=== PATIENT | male | born 1960 | race Caucasian/White ===

== ENCOUNTER 2017-09-20 10:42 | Emergency (ER) | payer BC, SELFPAY | END 2017-09-20 12:04 | disposition home or self-care (01) | PROVIDERS: Emergency Provider Nurse Practitioner Family; Visit Provider Nurse Practitioner Family | DX: J09.X2 Influenza due to identified novel influenza A virus with other respiratory manifestations (principal) | CPT/HCPCS: 87804; 99201 ==

== ENCOUNTER → 2018-07-08 12:14 | Outpatient (CLI) | payer BC, SELFPAY ==
[2018-07-08 12:16] LABS: Adenovirus F 40/41, stool Not Detected (NotDetected); Astrovirus Not Detected (NotDetected); Campylobacter Not Detected (NotDetected); Clostridium Difficile A/B, PCR Not Detected (NotDetected); Cryptosporidium Not Detected (NotDetected); Cyclospora Cayetanesis Not Detected (NotDetected); Entamoeba histolytica Not Detected (NotDetected); Enteroaggregative E coli Not Detected (NotDetected); Enterotoxigenic E coli Not Detected (NotDetected); Giardia lamblia Not Detected (NotDetected); Norovirus Not Detected (NotDetected); Plesimonas Shigalloides, PCR Not Detected (NotDetected); Rotavirus A Not Detected (NotDetected); Salmonella, PCR Not Detected (NotDetected); Sapovirus Not Detected (NotDetected); Shiga-like toxin E coli Not Detected (NotDetected); Shigella Enterovasive E coli Not Detected (NotDetected); Vibrio Cholerae Not Detected (NotDetected); Vibrio, PCR Not Detected (NotDetected); Yersinia Entercolitica, PCR Not Detected (NotDetected)
[2018-07-08 16:10] LABS: Enteropathogenic E coli Detected (NotDetected)
== END ==
PROVIDERS: PCP Nurse Practitioner; Visit Provider Nurse Practitioner
DX: R19.7 Diarrhea, unspecified (principal); Z20.5 Contact with and (suspected) exposure to viral hepatitis
CPT/HCPCS: 87507

== ENCOUNTER → 2018-11-11 07:47 | Outpatient (CLI) | payer BC, SELFPAY ==
--- NOTE | 2018-11-11 07:55 | MR_ITS ---
MR head/brain wo con HISTORY: Severe constant headache ITS.REASON: NEW DAILY PERSISTENT HEADACHE ORDERING PHYSICIAN: Miesha Mosley PATIENT AGE: 58 years Comparison: 727 TECHNIQUE: Standard multiplanar multiecho sequences are performed without contrast. FINDINGS: No midline shift, mass effect, intracranial hemorrhage, or hydrocephalus. No evidence of acute infarction. The cerebellopontine angle, cerebellum, and brainstem are unremarkable. There are scattered periventricular and subcortical small T2 white matter hyperintensities. These may be due to ischemic gliotic foci from small vessel disease or migraine headache. Demyelinating process felt to be less likely but not completely excluded. No corpus callosal or subcortical U fibers involvement. The pituitary, optic chiasm, corpus callosum, and craniocervical junction and upper cervical cord have an unremarkable appearance. Mucosal thickening of the ethmoid sinuses and bilateral maxillary sinuses. Lobular mucosal thickening is present in the left nasopharynx and may be related to polyp involvement of the nasal mucosa on the left. No mastoid effusion. IMPRESSION: 1. No acute intracranial findings. 2. Scattered T2 white matter hyperintensities which may be due to ischemic gliotic change from small vessel disease versus migraine headache. Demyelinating process felt to be less likely but not totally excluded. 3. Paranasal sinus disease with possible polyp of the left nasopharynx
== END ==
PROVIDERS: PCP Nurse Practitioner Family; Visit Provider Nurse Practitioner Family
DX: G44.52 New daily persistent headache (NDPH) (principal)
CPT/HCPCS: 70551

== ENCOUNTER → 2020-06-08 16:16 | Outpatient (CLI) | payer BC, SELFPAY ==
--- NOTE | 2020-06-08 16:23 | XR_ITS ---
PROCEDURE: XR HAND RT MIN 3V CLINICAL INDICATION: R HAND PAIN COMPARISON: No exams were available for comparison FINDINGS: No fracture or dislocation. No lytic or blastic change. There is normal mineralization. The joint spaces are well-preserved. No significant degenerative/arthritic changes. No erosive changes evident. Other findings:There are hyperostotic changes at the carpal metacarpal junction dorsally as seen on the lateral view IMPRESSION: Hyperostosis at the dorsal carpal metacarpal junction otherwise negative Dictated by: Roger Roberts MD 06/08/2020 17:21 Roger Roberts MD in [place] 06/08/2020 17:21
[2020-06-08 17:26] LABS: Uric Acid 10.4 mg/dl (3.5-8.5)
[2020-06-08 17:31] LABS: C-Reactive Protein 0.8 mg/L (0-4)
[2020-06-08 17:56] LABS: Erythrocyte Sedimentation Rate 19 mm/hr (0-20)
[2020-06-10 10:44] LABS: RA Latex Turbid. <10.0 IU/mL (0.0-13.9)
[2020-06-11 15:40] LABS: Antinuclear Antibodies, IFA Negative (.)
== END ==
PROVIDERS: Nurse Practitioner Family; PCP Family Medicine; Visit Provider Family Medicine
DX: M79.641 Pain in right hand (principal)
CPT/HCPCS: 36415; 73130; 84550; 85651; 86038; 86140; 86431

== ENCOUNTER 2020-12-28 19:52 | Emergency (ER) | payer BC, SELFPAY ==
[2020-12-28 20:11] VITALS: RESP 16; TEMP 36.5; O2SAT 96; BMI 28.7
--- NOTE | 2020-12-28 20:18 | XR_ITS ---
PROCEDURE: XR ELBOW RT MIN 3V CLINICAL INDICATION: right elbow bursitis, swelling, pain COMPARISON: No exams were available for comparison FINDINGS: No fracture or dislocation. No lytic or blastic change. There is normal mineralization. There is a prominent spur of the tip of the olecranon at the insertion of the triceps tendon. There is prominent diffuse swelling of the olecranon bursa. No foreign bodies. IMPRESSION: Probable olecranon bursitis Dictated by: Dr. Jon Osorio MD 12/29/2020 08:32 Dr. Jon Osorio MD in [place] 12/29/2020 08:32
--- NOTE | 2020-12-28 20:18 | HMH.EDUTC ---
[facility] [place] Clinical Impression: Olecranon bursitis, right elbow Disposition: Home, Self-Care Condition on Discharge: Good Instructions: DI for Elbow Bursitis Additional Instructions: Rest the extremity, Elevate the extremity as tolerated while you are resting. Take ibuprofen for pain. Take the steroids that we prescribed. Starting them in the morning would be best. Wear the donal wrap or something else that will pad the elbow and protect it. Follow up with Dr. Dickson (orthopedics). I put in a referral but you need to call his office and schedule an appointment. Follow up with your regular doctor. GO TO THE ER FOR ANY WORSENING SYMPTOMS Prescriptions: methylPREDNISolone [Medrol] 4 mg PO DIRECTED 6 Days #21 tab.ds.pk Transmission Status: Received by [id number] Rx Referrals: Blu Roy MD [Primary Care Provider] - Jaimson Dickson MD [Staff Physician] - Time of Disposition: 20:47 Medical Decision Making - Medical Records Medical records reviewed: No: I reviewed the patient's medical records. - Adam Inquiry Pt receiving controlled substance: No Vital Signs: 12/28/20 20:11 12/28/20 20:51 Temperature 97.7 F 98.0 F Temperature Source Oral Oral Pulse Rate 88 Respiratory Rate 16 16 Blood Pressure 141/87 H 02 Sat by Pulse Oximetry 96 Oxygen Delivery Method Room Air Room Air Orders (Tests/Meds): ORDERS Category Date Time Status Elbow XR right minimum 3 views [XR elbow RT min 3V] Exams 12/28/20 20:18 Taken Stat - Radiology Data #1 Image(s): Elbow Image Reviewed: Yes I reviewed the patient's radiology image, Yes I have reviewed radiologist's interpretation Preliminary Findings: No Fracture Seen bone spur noted on x-ray, no fracture [facility] [place] - General Stated complaint: knot on right elbow Time Seen by Provider: 12/28/20 20:18 Mode of Arrival: Ambulatory Source of Information: Patient Limitations: No Limitations Description of Symptoms (Recalled from Triage Doc. by RN): Red swollen area to Right Elbow, denies any pain or discomfort. HEENT Symptoms (Recalled from RN notes): No Resp Symptoms (Recalled from RN notes): No Skin Symptoms (Recalled from RN notes): Yes MS Symptoms (Recalled from RN notes): No Functional Status (Recalled from RN notes): na - History of Present Illness Provider Complaint: He states that since earlier today he has had right elbow pain and swelling. He denies any injury or history of similar episodes. - Related Data Home Medications Medication Instructions Recorded Confirmed Levothyroxine Sodium 25 mcg PO DAILY 08/16/19 08/16/19 [Levothyroxine 25mcg (0.025mg) Tab] Tiotropium Br/Olodaterol HCl 2 puffs INHALATION DAILY 08/16/19 08/16/19 [Stiolto Respimat Inhal [place]] Previous Rx's Medication Instructions Recorded predniSONE [Prednisone 20mg 20 mg PO BID #10 tab 08/17/19 Tab] methylPREDNISolone [Medrol] 4 mg PO DIRECTED 6 Days #21 12/28/20 tab.ds.pk Allergies Allergy/AdvReac Type Severity Reaction Status Date / Time milk Allergy Verified 12/28/20 20:35 - Worker's Comp Is this a Worker's Comp case?: No [facility] History - Hepatitis A Screen Drug use history?: No High risk sexual behaviors?: No History of sexually transmitted infection?: No Currently employed?: No Childcare worker?: No Do you have indoor plumbing?: Yes Do you have electricity?: Yes Attestation statement:: This patient has been screened for Hepatitis A risk factors. I have reviewed the patient's past medical history: Yes Medical History: Denies:: Diabetes Mellitus Type 1, Diabetes Mellitus Type 2 - Social History Smoking Status: Former smoker Tobacco Type: cigarettes Alcohol Intake: never Occupational Status: employed ROS Obtained: Yes All systems reviewed & no additional complaints - Constitutional Constitutional: Denies chills, Denies fever(s) - Musculoskeletal Musculoskel
[2020-12-28 20:51] VITALS: BP 141/87; PULSE 88; RESP 16; TEMP 36.7; O2SAT 98
== END 2020-12-28 20:53 | disposition home or self-care (01) ==
PROVIDERS: Emergency Provider Nurse Practitioner Family; PCP Family Medicine
DX: M70.21 Olecranon bursitis, right elbow (principal); Z87.891 Personal history of nicotine dependence
CPT/HCPCS: 73080; 99202; G0463

== ENCOUNTER → 2021-05-20 12:45 | Outpatient (CLI) | payer BC, SELFPAY ==
[2021-05-20 13:55] VITALS: PULSE 75; PULSE 78
--- NOTE | 2021-05-20 14:31 | CT_ITS ---
PROCEDURE: CT LUNG SCREENING CLINICAL INDICATION: lung cancer screening COMPARISON: No exams were available for comparison TECHNIQUE: The exam was performed on a GE Light Speed [address] scanner using 2.90 mGy CTDI. A low dose helical CT CHEST was performed on a multi-detector scanner. All CT scans at the facility use one or more dose reduction, viz: automated exposure control, ma/kV adjustment per patient size (including targeted exams where dose is matched to indication, i.e. head), or iterative reconstruction technique. The LDCT was performed in a facility that meets the criteria for the screening program. Data regarding this exam was submitted to ACR which is an approved registry. The order for this exam indicates that it came as a result of a lung cancer screening counseling shard decision-making visit that included all the elements required of such a visit including smoking cessation. The radiologist interpreting this exam meets the CMS criteria for the LDCT lung cancer screening program. The exam is reported using the Lung-RADS classification scale and reported to the ACR registry. NOTE: This study was performed for the specific purposes of lung cancer screening and is not an alternative to diagnostic chest CT. RADIATION DOSE: CTDI vol(CT dose Index-volume) = 2.90mG DLP (Dose Length Product) = 107.86 mGcm FINDINGS: COPD changes with centrilobular emphysema. Mild bronchial thickening. Calcified granuloma left posterior costophrenic sulcus. No suspicious pulmonary nodules apparent OTHER FINDINGS: Mild dilatation of the ascending aorta measuring up to 4.2 cm. IMPRESSION: Lung-RADS Category 1 Negative Follow-up: Continue annual screening with LDCT in 12 months There is mild dilatation of the ascending aorta at 4.2 cm. Appropriate clinical and imaging follow-up suggested to confirm stability Dictated by: Roger Roberts MD 05/21/2021 05:25 Roger Roberts MD in [place] 05/21/2021 05:25
== END ==
PROVIDERS: PCP Family Medicine; Visit Provider Internal Medicine Pulmonary Disease
DX: Z87.891 Personal history of nicotine dependence (principal); Z12.2 Encounter for screening for malignant neoplasm of respiratory organs; R06.00 Dyspnea, unspecified
CPT/HCPCS: 71271; 94060; 94618; 94640; 94727; 94729

== ENCOUNTER → 2021-12-06 17:41 | Outpatient (CLI) | payer BC, SELFPAY | PROVIDERS: PCP Family Medicine; Visit Provider Internal Medicine Pulmonary Disease | DX: R06.09 Other forms of dyspnea (principal) | CPT/HCPCS: 94762 ==

== ENCOUNTER → 2021-12-28 08:14 | Outpatient (CLI) | payer BC, SELFPAY | PROVIDERS: Visit Provider Surgery | DX: Z01.812 Encounter for preprocedural laboratory examination (principal); Z11.52 Encounter for screening for COVID-19; Z12.11 Encounter for screening for malignant neoplasm of colon; Z86.010 Personal history of colon polyps | CPT/HCPCS: C9803; U0003; U0005 ==

== ENCOUNTER 2021-12-31 11:30 | Day surgery (SDC) | payer BC, SELFPAY ==
[2021-12-27 11:54] VITALS: BMI 28.7
[2021-12-31 11:41] VITALS: BP 159/100; PULSE 71; RESP 16; TEMP 36.5; O2SAT 96
--- NOTE | 2021-12-31 12:01 | HMH.ANESCL ---
[facility] Anesthesia Checklist - Patient Identification Patient Identification: Arm Band - Structural Data Admitted From: Home Planned Operative Procedure/s: colonoscopy Consent for Planned Operative Procedure(s) Verified: Yes Verified Documents: Surgical Consent, History and Physical - NPO Status Verified Time NPO: 00:00 - Additional verifications Anesthesia Reactions: No - Airway Assessment C-Spine Mobility Assessed: Yes (mp2) TMJ Mobility Assessed: Yes Dentition: Good Dentition - Neurological Assessment Level of Consciousness: Awake, Alert - Anesthesia Plan Anesthesia Risk discussed: Yes Anesthesia Plan: Verified ASA Class: II Anesthesia Type: MAC [facility] History I have reviewed the patient's past medical history: Yes Medical History: Reports:: Chronic Obstructive Pulmonary Disease (COPD), Gastroesophageal Reflux Disease(GERD) Denies:: Cancer, Diabetes Mellitus Type 1, Diabetes Mellitus Type 2, Internal Pacemaker, MRSA, Seizures *Have you ever received a pneumonia vaccine?: No *Have you received a flu vaccine this season?: No Other Medical History: Reports: Hypothyroidism Anesthesia experience/problems:: nac Other Surgeries: Yes: Sinus Surgery, Other. No: Pacemaker - *Social History Last grade of school completed: Advanced degree Smoking Status: Former smoker Tobacco Type: cigarettes Alcohol Intake: never Substance Use Type: denies use *Occupational Status:: employed Housing: house Household Members: spouse *Travel in the last 8 weeks: None Family Hx:: Cancer, Diabetes, Heart Attack
[2021-12-31 12:57] VITALS: O2SAT 96
--- NOTE | 2021-12-31 13:31 | HMH.SCOPE ---
- Procedure: Date: 12/31/21 Patient Date of :: 1960 Procedure Performed:: Colonoscopy with polypectomy by means other than snare Indications:: History of colon polyps Performing Provider:: Fredis Jacinto MD Referring Provider:: . Sedation:: Monitored anesthesia care Procedure:: After informed consent was obtained the patient was taken to the endoscopy suite. Sedation ensued after the patient was transferred to the left lateral decubitus position. Pulse, blood pressure, and oxygen saturation were monitored throughout the procedure. Digital rectal exam revealed no significant abnormality. The colonoscope was placed in position. The entire colon was evaluated. The colonoscope was carefully removed and the patient was transferred to recovery in stable condition. Please see findings and specimens below for detail. Findings:: Bowel preparation relatively fair Significant lack of relaxation and severe spasticity of the sigmoid colon Polyps (see specimens) Specimens:: Polyp at 55 cm (cold biopsy forceps) Polyp at 40 cm (cold biopsy forceps) Recommendations:: Timing of repeat colonoscopy is pending pathology but likely be between 2-3 years secondary to history of polyps, lack of relaxation, and severe sigmoid spasticity. Consider barium enema for improved evaluation of the sigmoid colon. If barium enema reveals no abnormality timing of repeat colonoscopy can be extended to 3-5 years. Complications:: No immediate Estimated blood obtained (mL): 1
[2021-12-31 13:35] VITALS: BP 98/61; PULSE 78; RESP 14; TEMP 36.1; O2SAT 91
[2021-12-31 13:45] VITALS: BP 98/63; PULSE 62; RESP 14; TEMP 36.1; O2SAT 94
[2021-12-31 13:55] VITALS: BP 173/71; PULSE 64; RESP 16; TEMP 36.1; O2SAT 94
[2021-12-31 14:10] VITALS: BP 127/86; PULSE 61; RESP 18; TEMP 36.1; O2SAT 94
== END 2021-12-31 14:10 | disposition home or self-care (01) ==
LOC: OUTP 11:31
PROVIDERS: PCP Family Medicine; Visit Provider Surgery
PROC: 0DJD8ZZ Inspection of Lower Intestinal Tract, Via Natural or Artificial Opening Endoscopic (ICD-10-PCS; CPT 45380; principal; 2021-12-31 12:30)
DX: Z12.11 Encounter for screening for malignant neoplasm of colon (principal); K58.9 Irritable bowel syndrome, unspecified; K63.5 Polyp of colon; Z86.010 Personal history of colon polyps; E07.9 Disorder of thyroid, unspecified; K21.9 Gastro-esophageal reflux disease without esophagitis; J44.9 Chronic obstructive pulmonary disease, unspecified; E78.5 Hyperlipidemia, unspecified; I10 Essential (primary) hypertension; Z79.899 Other long term (current) drug therapy
CPT/HCPCS: 45380

== ENCOUNTER → 2022-06-03 15:05 | Outpatient (CLI) | payer BC, SELFPAY ==
--- NOTE | 2022-06-03 15:05 | CT_ITS ---
FINAL REPORT CLINICAL HISTORY: lung cancer screening, former smoker.. quit 6 years ago. smoked 2 ppd x 45 years. copd no family hx COMPARISON: May 20, 2021 FINDINGS: Low-Dose Chest CT Axial images were obtained from the lung apex to the mid abdomen by computed tomography. Low-dose protocol was utilized. CTDI vol (mGy): 2.90 DLP (mGy-cm): 104.46 There is no axillary adenopathy. There is no hilar or mediastinal adenopathy. The heart is proper size. There is ectasias ascending aorta measuring 3.9 cm, stable. There is no pericardial or pleural effusion. Limited images of the upper abdomen are unremarkable. Lung window images demonstrate moderate changes of emphysema and mild pulmonary scarring. There is a calcified granuloma in the left lung base. No new mass or nodule is identified. IMPRESSION: Ectasias of the ascending aorta 3.9 cm, stable. No new mass or nodule identified. Lung RADS category 1. Recommend 12 month follow-up low-dose chest CT. Reviewed, Interpreted and Dictated by Chris Rivero III, MD Transcribed by Cely Dietz Authenticated and [facility]
== END ==
PROVIDERS: PCP Family Medicine; Visit Provider Internal Medicine Pulmonary Disease
DX: Z87.891 Personal history of nicotine dependence (principal); Z12.2 Encounter for screening for malignant neoplasm of respiratory organs
CPT/HCPCS: 71271

== ENCOUNTER → 2022-12-17 16:22 | Outpatient (CLI) | payer BC, SELFPAY ==
--- NOTE | 2022-12-17 16:28 | XR_ITS ---
PROCEDURE INFORMATION: Exam: XR Right Foot Exam date and time: 12/17/2022 4:33 PM Age: 62 years old Clinical indication: Pain; Swelling, leg or foot; Right; Prior surgery; Additional info: Pain no accident TECHNIQUE: Imaging protocol: Radiologic exam of the right foot. Views: 3 or more views. COMPARISON: No relevant prior studies available. FINDINGS: Tubes, catheters and devices: Dorsal fixation plates and screws have no evidence of loosening. Bones/joints: First MTP joint arthrodesis is well healed. No fractures, dislocations, or focal bone lesions. Plantar and Achilles heel spurs are present. Soft tissues: Normal. IMPRESSION: 1. Right 1st MTP joint arthrodesis and hardware is well healed. 2. No other acute findings in the right foot. 3. Plantar and Achilles heel spurs affect the right calcaneus.
== END ==
PROVIDERS: PCP Family Medicine; Visit Provider Nurse Practitioner Family
DX: M79.671 Pain in right foot (principal)
CPT/HCPCS: 73630

== ENCOUNTER 2023-11-27 15:53 | Emergency (ER) | payer BC, SELFPAY ==
[2023-11-27 15:54] VITALS: BP 154/91; PULSE 74; RESP 15; TEMP 36.6; O2SAT 96; BMI 28.7
--- NOTE | 2023-11-27 15:55 | ECG_ITS ---
APPROVED REPORT Exam: Resting ECG HR:76 bpm ECG Measurements Heart Rate 76 AXES [place] 145 P 57 QRSd 85 QRS 5 QT 352 T 39 QTc 382 Conclusion SINUS RHYTHM OCCASIONAL ECTOPIC PREMATURE COMPLEXES Electronically signed by : TIFFANIE LECHUGA, 11/27/2023 21:04:28
--- NOTE | 2023-11-27 15:59 | XR_ITS ---
FINAL REPORT CLINICAL HISTORY: cp, palpitations COMPARISON: 08/16/2019 FINDINGS: A portable view of the chest was obtained. Cardiac and mediastinal silhouettes are within normal limits. The lungs are clear. There is no pleural effusion or pneumothorax. IMPRESSION: No acute process on this portable exam. Reviewed, Interpreted and Dictated by Paz Strong MD Transcribed by Chastity Fair Authenticated and [facility]
[2023-11-27 16:00] VITALS: BP 128/79; PULSE 78; RESP 16; O2SAT 96
[2023-11-27 16:07] LABS: Basophils % 0.2 % (0.1-2.0); Eosinophils # 0.1 K/mm3 (0.0-0.4); Eosinophils % 0.8 % (0.1-12.0); Hematocrit 41.3 % (42.0-52.0); Lymphocytes # 1.9 K/mm3 (0.7-4.5); Lymphocytes % 12.7 % (10-50); Mean Corpuscular HGB Conc 31.4 g/dL (31.8-35.4); Mean Corpuscular Hemoglobin 25.1 pg (27.0-31.2); Mean Corpuscular Volume 79.8 fl (80-94); Mean Platelet Volume 8.3 fl (7.4-10.4); Monocytes # 1.1 K/mm3 (0.1-1.0); Monocytes % 7.1 % (1.7-9.3); Neutrophils % 79.2 % (37.0-80.0); Platelet Count 464 K/mm3 (142-424); Red Blood Count 5.17 M/mm3 (4.60-6.20); Red Cell Distribution Width 18.1 % (11.5-17.5); White Blood Count 15.2 K/mm3 (4.8-10.8)
[2023-11-27 16:08] VITALS: PULSE 79
--- NOTE | 2023-11-27 16:10 | PC.NURSE ---
Dr Law at bs
--- NOTE | 2023-11-27 16:10 | PC.NURSE ---
DR LECHUGA AT BEDSIDE
[2023-11-27] MEDS: ASPIRIN 81MG CHEWABLE TABLET 324 MG PO (16:16)
[2023-11-27 16:18] LABS: MANUAL DIFFERENTIAL MANUAL DIFFERENTIAL (MANUAL DIFF)
[2023-11-27 16:20] LABS: Alanine Aminotransferase 30 U/L (12-78); Albumin Level 4.2 g/dl (3.5-5.0); Albumin/Globulin Ratio 1.4 (1.1-1.8); Alkaline Phosphatase 85 U/L (38-126); Anion Gap 14.7 mEq/L (5-15); Aspartate Amino Transferase 26 U/L (17-59); Bilirubin,Total 0.3 mg/dl (0.2-1.3); Blood Urea Nitrogen 21 mg/dl (9-20); Calcium 8.6 mg/dl (8.4-10.2); Carbon Dioxide 23 mmol/L (22.0-30.0); Chloride 102 mmol/L (98-107); Creatinine Clearance Estimated 81 mL/min (50-200); Estimated Glomerular Filt Rate 61 ml/min (>60); GFR (African American) 74 ML/MIN (>60); Glucose 104 mg/dl (74-100); Lipase 106 U/L (23-300); Potassium 4.7 mmoL/L (3.5-5.1); Sodium 135 mmol/L (136-145); Total Protein,Serum 7.2 g/dl (6.3-8.2)
[2023-11-27 16:30] VITALS: BP 115/72; PULSE 78; RESP 16; O2SAT 95
[2023-11-27 16:37] LABS: T4 (Thyroxine) 8.9 ug/dl (5.53-11.0)
--- NOTE | 2023-11-27 16:37 | ED_ITS ---
Discharge Plan Disposition Patient Disposition: Home, Self-Care Chief Complaint: Chest Pain Prescriptions Prescriptions: No Action cyanocobalamin (vitamin B-12) [Vitamin B-12] 500 mcg tablet 500 mcg PO DAILY diphenhydramine HCl [Allergy (diphenhydramine)] 25 mg capsule 25 mg PO HS ferrous sulfate [FeroSul] 325 mg (65 mg iron) tablet 325 mg PO DAILY meloxicam 15 mg tablet 15 mg PO DAILY albuterol sulfate 90 mcg/actuation HFA aerosol inhaler 1 inh INHALATION Q6H PRN (Reason: shortness of breath or wheezing) 90 Days Qty: 8.5 3RF esomeprazole magnesium 20 mg capsule,delayed release(DR/EC) 20 mg PO DAILY Qty: 60 2RF Stiolto Respimat 2.5-2.5 mcg/actuation mist 2 inh .ROUTE .COMPLEX 90 Days Qty: 4 0RF Rx Instructions: 2 inhalations; levothyroxine 25 MCG tablet 25 mcg PO DAILY tiotropium-olodaterol 4 GM mist 2 puff INHALATION DAILY Referrals Follow up/Referrals: Monster Jain MD [Primary Care Provider] - See instructions Activity Restrictions/Add. Instructions Additional Instructions/Restrictions: Call your family doctor to establish care for this visit to the emergency department and schedule follow-up within 48 hours to ensure improvement. If you have any worsening of your condition or any other concerning signs or symptoms, return to the emergency department or your primary care doctor for further evaluation. Talk to your family doctor about scheduling follow-up with cardiology for further evaluation. Clinical Impressions Clinical Impression: Heart palpitations, Symptomatic PVCs Discharge ED Provider: Jayden Law [facility] General Chief Complaint: Chest Pain Stated Complaint: chest pain Time Seen by Provider: 11/27/23 15:54 Mode of Arrival: Ambulatory Source of Information: Patient Limitations: No Limitations Description of Symptoms (Recalled from ER Triage Doc. by RN): pt presents to ED with c/o chest pain. pt reports pain began on thursday and has been intermittent. pain radiates into throat. History of Present Illness HPI narrative: 63-year-old male history of COPD not currently smoking presenting with PVCs. Patient states that he started having fluttering in his chest 3 days prior to this visit. Went to his family doctor, they noticed early beats, and then told him to come to the emergency department for further evaluation. Patient denies chest pain, shortness of breath, PND, orthopnea, lower extremity swelling, diaphoresis, recent illness, cough, or any other concerns. Related Data Home Medications Medication Instructions Recorded Confirmed levothyroxine 25 mcg tablet 25 mcg PO DAILY thyroid 08/16/19 12/31/21 cyanocobalamin (vitamin B-12) 500 500 mcg PO DAILY Supplement 05/01/21 12/31/21 mcg tablet (Vitamin B-12) diphenhydramine HCl 25 mg capsule 25 mg PO HS allergies 05/01/21 12/31/21 (Allergy (diphenhydramine)) ferrous sulfate 325 mg (65 mg 325 mg PO DAILY iron 05/01/21 12/31/21 iron) tablet (FeroSul) meloxicam 15 mg tablet 15 mg PO DAILY Pain 05/01/21 12/31/21 tiotropium 2.5 mcg-olodaterol 2.5 2 puff inhalation DAILY Asthma 12/27/21 12/31/21 mcg/actuation mist for inhalation Previous Rx's Medication Instructions Recorded albuterol sulfate 90 mcg/actuation 1 inh inhalation Q6H PRN shortness 05/01/21 aerosol inhaler of breath or wheezing 90 days #8.5 grams esomeprazole magnesium 20 mg 20 mg PO DAILY #60 caps 08/11/22 capsule,delayed release tiotropium 2.5 mcg-olodaterol 2.5 2 inh .Route .COMPLEX 90 days #4 10/09/23 mcg/actuation mist for inhalation grams (Stiolto Respimat) Allergies Allergy/AdvReac Type Severity Reaction Status Date / Time milk Allergy Verified 12/04/21 15:40 [facility] Disclaimer: The information contained in this section may have been updated after the nicolle ent was seen, as this information can be updated by other users. Social History Smoking Status: Former smoker tobacco type: cigarettes alcohol intake: never substance use type: denies use current occupational status: employed Travel in the last 8 weeks: None household members: spouse housing: house current occupation: [employer] current occupational exposures/hazards: No caffeine: Yes ROS Obtained: Yes All systems reviewed & no additional complaints except as documented Physical Exam General General appearance: alert Neck Neck exam: Present trachea midline Chest Chest inspection: Present normal inspection and symmetric chest wall rise Respiratory Respiratory exam: Present normal lung sounds bilaterally; Absent respiratory distress, wheezes, stridor, accessory muscle use or prolonged expiratory phase Cardiovascular Cardiovascular exam: Present regular rate, normal rhythm and other (Intermittent PVCs, also seen on monitor) Extremities Exam Extremities exam: Absent edema Neurological Exam Neurological exam: Present alert, oriented X3 and CN II-XII intact Skin Skin exam: Present warm and dry; Absent cyanosis, diaphoresis or pallor HEART Score HEART Score HEART Score assessment performed?: Yes History (anamnesis): Slightly suspicious ECG: Normal Age: 45-65 years Risk factors: 1-2 risk factors Troponin: </= normal limit HEART Score: 2 Critical Care Critical Care Time Critical Care Time: No Medical Decision Making Medical Records Medical records reviewed: Yes I reviewed the patient's medical records. Adam Inquiry Pt receiving controlled substance: No Adam was queried for this patient: No Vital Signs Vital Signs: 11/27/23 15:54 11/27/23 16:08 11/27/23 16:00 Temperature 97.9 F Temperature Source Oral Pulse Rate 79 78 Pulse Rate [Left Radial] 74 Respiratory Rate 15 16 Blood Pressure 128/79 Blood Pressure [Right Arm] 154/91 H Blood Pressure Mean [Right Arm] 112 02 Sat by Pulse Oximetry 96 96 Oxygen Delivery Method Room Air Room Air 11/27/23 16:30 Temperature Temperature Source Pulse Rate 78 Pulse Rate [Left Radial] Respiratory Rate 16 Blood Pressure 115/72 Blood Pressure [Right Arm] Blood Pressure Mean [Right Arm] 02 Sat by Pulse Oximetry 95 Oxygen Delivery Method Room Air Lab Data Labs: Lab Results 11/27/23 15:59: WBC 15.2 H, RBC 5.17, Hgb 13.0 L, Hct 41.3 L, MCV 79.8 L, MCH 25.1 L, MCHC 31.4 L, RDW 18.1 H, Plt Count 464 H, MPV 8.3, Neut % (Auto) 79.2, Lymph % (Auto) 12.7, Castro % (Auto) 7.1, Eos % (Auto) 0.8, Baso % (Auto) 0.2, Neut # (Auto) 12.0 H, Lymph # (Auto) 1.9, Castro # (Auto) 1.1 H, Eos # (Auto) 0.1, Baso # (Auto) 0.0, Total Counted 100, Neutrophils % (Manual) 76, Lymphocytes % (Manual) 16, Monocytes % (Manual) 8, Platelet Estimate Slight increase, Hypochromasia 1+, Anisocytosis 1+, Microcytosis 1+, Sodium 135 L, Potassium 4.7, Chloride 102, Carbon Dioxide 23, Anion Gap 14.7, BUN 21 H, Creatinine 1.20, Estimated Creat Clear 81, Estimated GFR 61, Est GFR ( Amer) 74, Glucose 104 H, Calcium 8.6, Magnesium 2.0, Total Bilirubin 0.3, AST 26, ALT 30, Alkaline Phosphatase 85, Troponin I < 0.01, NT-Pro-B Natriuret Pep 171 H, Total Protein 7.2, Albumin 4.2, Globulin 3.0, Albumin/Globulin Ratio 1.4, Lipase 106, TSH 0.07 L, Thyroxine (T4) 8.9 11/27/23 15:59 11/27/23 15:59 Response Orders (Tests/Meds): ED MEDICATIONS Discontinued Medications Generic Name Dose Route Start Last Admin Trade Name Freq PRN Reason Stop Dose Admin Aspirin 324 mg 11/27/23 15:59 11/27/23 16:16 Aspirin 81mg Chewable Tablet PO 11/27/23 16:00 324 mg ONCE ONE Administration ORDERS Category Date Time Status XR chest portable Stat Exams 11/27/23 15:59 Taken Brain Natriuretic Peptide Stat Lab 11/27/23 15:59 Completed Complete Blood Count Auto Diff Stat Lab 11/27/23 15:59 Completed Comprehensive Metabolic Panel Stat Lab 11/27/23 15:59 Completed Lipase Stat Lab 11/27/23 15:59 Completed Magnesium Stat Lab 11/27/23 15:59 Completed T4 (Thyroxine) Stat Lab 11/27/23 15:59 Completed TSH [Thyroid Stimulating Hormone] Stat Lab 11/27/23 15:59 Completed Troponin I Q3H Lab 11/27/23 19:15 Ordered Troponin I Q3H Lab 11/27/23 22:15 Ordered Troponin I Stat Lab 11/27/23 15:59 Completed MDM Narrative Medical Decision Narrative: 63-year-old male history of COPD not currently smoking presenting with PVCs. Patient states that he started having fluttering in his chest 3 days prior to this visit. Went to his family doctor, they noticed early beats, and then told him to come to the emergency department for further evaluation. Patient denies chest pain, shortness of breath, PND, orthopnea, lower extremity swelling, diaphoresis, recent illness, cough, or any other concerns. Patient states that he drinks coffee every morning as well. Other stimulant use. History was obtained via conversation with patient. On arrival, patient hemodynamically stable, alert, oriented x4, appropriate, GCS 15, moving all extremities spontaneously, pupils equal and reactive to light. Full physical exam performed and significant for well-appearing male no acute distress. Lungs are clear to auscultation bilaterally. No focal heart sounds with normal S1 and S2, no murmurs. No lower extremity edema. Differential includes metabolic abnormality, stimulant side effect, medication side effect, structural cardiac disease, ACS, WI, among others. Patient was given 324 mg aspirin for symptomatic management and correction of underlying abnormalities. Workup independently interpreted and significant for nonactionable CBC or chemistry. Mild leukocytosis, but nonspecific and does not correlate with history physical exam. Lipase negative. TSH low at 0.07, T4 normal 8.9. Magnesium normal. BNP mildly elevated at 170, but nonactionable. Troponin negative. Chest x-ray without acute cardiopulmonary airspace disease. See radiology read for full review of final results. Independent interpretation of EKG shows sinus rhythm with occasional PVCs. no ST or T wave changes concerning for acute ischemia. [place] normal, intervals normal. Patient placed on continuous cardiac monitoring and continuous pulse ox with initial blood pressure 128/79, heart rate 75, saturation 98% on room air. Heart score 2. On reevaluation, patient remains at baseline without symptoms. Given patient presentation, workup, history, this most likely represents PVCs, likely secondary to caffeine use. Because patient at baseline without signs or symptoms of clinical decompensation, deemed appropriate for discharge. Results were relayed to patient who voiced understanding and were agreeable to outpatient management and follow up. At the time of discharge the patient was hemodynamically stable, tolerating PO, and mobilizing appropriately.
[2023-11-27 16:41] LABS: Troponin I < 0.01 ng/ml (0.00-0.034)
[2023-11-27 16:50] LABS: Thyroid Stimulating Hormone 0.07 uIU/mL (0.465-4.68)
[2023-11-27 17:04] LABS: NT Pro Brain Natriuretic Pep. 171 pg/mL (0-125)
[2023-11-27 17:12] LABS: Lymphocytes % 16 % (10-50); Monocytes % 8 % (2-9); Neutrophils % 76 % (42-76); Total Cells Counted 100
[2023-11-27 17:13] LABS: Anisocytosis 1+; Hypochromasia 1+; Microcytosis 1+; Platelet Estimate Slight Increase
[2023-11-27 17:37] VITALS: BP 130/50; PULSE 70; RESP 18; TEMP 37.1; O2SAT 100
== END 2023-11-27 17:39 | disposition home or self-care (01) ==
PROVIDERS: Emergency Provider Emergency Medicine; PCP Family Medicine
DX: R07.9 Chest pain, unspecified (principal); R00.2 Palpitations; I49.3 Ventricular premature depolarization; D72.829 Elevated white blood cell count, unspecified; Z87.891 Personal history of nicotine dependence
CPT/HCPCS: 71045; 80053; 83690; 83735; 83880; 84436; 84443; 84484; 85007; 85025; 93005; 99285

== ENCOUNTER 2024-01-12 15:36 | Outpatient (CLI) | payer BC, SELFPAY ==
[2024-01-12 16:36] LABS: Uric Acid 5.9 mg/dl (3.5-8.5)
== END 2024-01-12 23:59 | disposition home or self-care (01) ==
LOC: RT 15:38
PROVIDERS: Nurse Practitioner; PCP Family Medicine; Visit Provider Nurse Practitioner
DX: R07.9 Chest pain, unspecified (principal); R06.09 Other forms of dyspnea; I49.3 Ventricular premature depolarization; R00.2 Palpitations; M10.072 Idiopathic gout, left ankle and foot; M79.672 Pain in left foot
CPT/HCPCS: 36415; 84550; 93270

== ENCOUNTER 2024-01-25 06:08 | Outpatient (CLI) | payer BC, SELFPAY ==
--- NOTE | 2024-01-25 | CA_ITS ---
APPROVED REPORT Exam: Pharmacologic Technologist: Mariluz Pollack, Ht: 5 ft 10 in Wt: 199 lbs BSA: 2.08 m2 HR: 64 bpm BP: 160/79 mmHg Rhythm: NSR Medical History Medications: Levothyroxine,,,,, Allopurinol,,,,, Albuterol,,,,, MeLOXICAM,,,,, Esomeprazole,,,,, StIOLto,,,,, Vitamin B-12,,,,, DiPHENHYDRAMINE hci,,,,, Stress Test Details Test: LEXISCAN Reason for pharmacologic stress test: physical limitation. HR Resting HR: 67 bpm Max Heart Rate (APMHR): 157 bpm Max HR Achieved: 93 bpm Target HR (85% APMHR): 133 bpm % of APMHR: 59 Recovery HR: 73 bpm BP Resting BP: 160/79 mmHg Max BP: 171/84 mmHg Recovery BP: 158.0/87.0 mmHg ECG Resting ECG: Normal sinus rhythm Stress ECG: No siginficant ST changes Arrhythmia: None Clinical Exercise duration: 00:24 min Highest Stage Achieved: Exercise capacity: 1.0 METs Stress ECG Conclusion Symptoms: SOB & dizziness w/ Lexiscan. No chest pain. Arrhythmias/Ectopy: none ST changes: None Conclusion: No significant ST changes with Lexiscan. Myoview images are reported separately. Test Summary REST 15:42 . . 67 . 160/ 79 . . Stage 1 00:24 . . 63 . . . Stop exercise at 00:24 RECOVERY 01:00 . . 92 . . . . RECOVERY 02:00 . . 84 . 162/ 89 . . RECOVERY 03:00 . . 80 . 162/ 89 . . RECOVERY 04:00 . . 72 . 155/ 91 . . RECOVERY 05:00 . . 77 . 155/ 91 . . RECOVERY 06:00 . . 73 . 157/ 98 . . RECOVERY 07:00 . . 76 . 165/100 . . RECOVERY 08:00 . . 70 . 161/ 92 . . RECOVERY 08:51 . . 71 . 158/ 87 . . Electronically signed by : Sonia Kim MD 01/26/2024 12:52:19
--- NOTE | 2024-01-25 06:26 | NM_ITS ---
APPROVED REPORT Exam: Nuclear Stress Test Indication: SOB, Abnormal EKG, HTN, Family history Patient Location: Outpatient Stress Tech: Mariluz Carvajal [place] Tech:Gretchen Kovacs, ARRT, RT (R)(N) Ht: 5 ft 10 in Wt: 200 lbs HR: 67 bpm BP: 160/79 mmHg BSA: 2.09 m2 TID: 1.25 BMI: 28.6 History: SOB, Abnormal EKG, HTN, Family history Procedure: Patient received 0.4 mg of intravenous Lexiscan, resting heart rate 67 bpm, resting blood pressure 160/79 mmHg, with Lexiscan maximum heart rate achieved was 93 bpm which is % of the maximum predicted heart rate and blood pressure was 171/84 mmHg. With Lexiscan, patient denied any complaint of chest pain. Cardiac Stress and Resting SPECT Images: Cardiac Stress and Resting SPECT images were obtained using technetium 99m Myoview 29.9 mCi stress and 10.39 mCi at rest. Resting and stress imaging in supine and prone positions demonstrate a large sized, moderate, fixed perfusion defect in the inferior and inferoseptal LV liu. There is also increased transient ischemic dilatation ratio (TID 1.25), suggestive of possible multivessel disease or balanced ischemia. Gated imaging demonstrates mild reduction in global LV systolic function. There is moderate hypokinesis of the basal inferior LV wall. LVEF is calculated at 49%. Conclusion: Large sized, moderate, fixed perfusion defect in the inferior and inferoseptal LV liu. There is also increased transient ischemic dilatation ratio (TID 1.25), suggestive of possible multivessel disease or balanced ischemia. Gated imaging demonstrates mild reduction in global LV systolic function. There is moderate hypokinesis of the basal inferior LV wall. LVEF is calculated at 49%. Electronically signed by : Sonia Kim MD 01/26/2024 12:57:57
--- NOTE | 2024-01-25 07:29 | CA_ITS ---
APPROVED REPORT EXAM: Comprehensive 2D, Doppler, and color-flow Echocardiogram Tax Assessor: Pauline Marie CRT Ht: 5 ft 10 in Wt: 199lbs BSA: 2.08 BP: 149/84 mmHg Indications: Chest Pain, Shortness of Breath, COPD, Smoker, PVC's 2D Dimensions LA Volume 33.40 mL LA Volume Index 15.70 mL/m2 (M/F) 16-34 M-Mode Dimensions RVDd 3.53 cm (0.9-2.6) LA Diam 3.11 cm (1.9-4.0) LVDd 5.25 cm (3.5-5.7) LVDs 3.65 cm (3.5-5.7) IVSd 1.60 cm (0.6-1.1) PWd 0.68 cm (0.6-1.1) EF (Teich) 57.50% FS 30.50% EDV (Teich) 132.40 mL TAPSE 3.00 (<1.7) ESV (Teich) 56.30 mL LV Diastology E Decel Time 197 (160-240 msec) E/A Ratio 0.82 MED A' 12.60 cm/s LAT A' 15.50 cm/s Aortic Valve AO Peak GR. 8.10 mmHg Mitral Valve MV E Max Srinivasa. 70.0 (40-130 cm/s) MV A Velocity 85.0 (40-130 cm/s) E/A Ratio 0.82 MV PHT 58.0 ms Pulmonary Valve PV Peak Velocity 151.0 (50-150 cm/s) Tricuspid Valve TR P. Velocity 209.00 cm/s RAP Estimate 10.00 mmHg RVSP 27.40 mmHg Left Ventricle The left ventricle is normal size. The left ventricular systolic function is normal. The left ventricular ejection fraction is within the normal range. There is normal left ventricular wall thickness. There is normal LV segmental wall motion. The left ventricular diastolic function is normal. LVEF is 55%. Right Ventricle The right ventricle is normal size. The right ventricular systolic function is normal. Atria The left atrium size is normal. The right atrium size is normal. There is no Doppler evidence of interatrial shunt. Aortic Valve The aortic valve opens well. There is no aortic valvular stenosis. Trace aortic regurgitation. Mitral Valve The mitral valve is normal in structure. No evidence of mitral valve stenosis. Trace mitral regurgitation. Tricuspid Valve The tricuspid valve leaflets are thin and pliable. Trace tricuspid regurgitation. There is insufficient TR jet to estimate RVSP. Pulmonic Valve The pulmonary valve is normal in structure. Trace pulmonic regurgitation. Great Vessels The aortic root is normal in size. The ascending aorta is mildly dilated, measuring 3.8 cm in diameter. IVC is normal in size and collapses >50% with inspiration. Pericardium There is no pericardial effusion. Other Information Study Quality: Fair Conclusion Normal biventricular systolic function. No significant valvular stenosis or regurgitation. The ascending aorta is mildly dilated, measuring 3.8 cm in diameter. Electronically signed by : Sonia Kim MD 01/31/2024 14:33:36
[2024-01-25] MEDS: ISOTOPE MYOVIEW (PER STUDY) 1 DOSE IV (08:36)
[2024-01-25] MEDS: SODIUM CHLORIDE 0.9% 10ML SYR (RAD ONLY) 10 ML IV ×2 (08:36)
[2024-01-25] MEDS: REGADENOSON 0.4MG/5ML SYRINGE 0.400000000000000022 MG IV (08:36)
== END 2024-01-25 23:59 | disposition home or self-care (01) ==
LOC: RAD 06:11
PROVIDERS: PCP Family Medicine; Visit Provider Nurse Practitioner
DX: R06.09 Other forms of dyspnea (principal); R07.9 Chest pain, unspecified; I49.3 Ventricular premature depolarization; R00.2 Palpitations
CPT/HCPCS: 78452; 93017; 93018; 93306; A9502; J2785

== ENCOUNTER 2024-02-03 14:03 | Outpatient (CLI) | payer BC, SELFPAY ==
--- NOTE | 2024-02-03 14:04 | CT_ITS ---
FINAL REPORT TECHNIQUE: Thin section axial images were obtained from the lung apices to the upper abdomen by computed tomography. Reformatted images were obtained and reviewed. This study was performed with techniques to keep radiation doses al low as reasonably achievable (ALARA). Individualized dose reduction techniques using automated exposure control or adjustment of mA and/or kV according to the patient's size were employed. CLINICAL HISTORY: lung cancer screening FORMER SMOKER QUIT 10 YEARS AGO, 2PPD X39 YEARS COMPARISON: 06/03/2022 FINDINGS: CHEST CT LOW DOSE 64-year-old male, former smoker who quit 10 years ago, 63-tqmi-oxaf history. CTDI vol (mGy): 2.9 DLP (mGy-cm): 97.95 There is no axillary adenopathy. There is no mediastinal or hilar mass or adenopathy. The heart is normal in size. There is no pericardial or pleural effusion. There is moderate emphysema and mild pulmonary scarring. Lung window images demonstrate no suspicious infiltrate or nodule. A calcified granuloma is noted in the left lung base. Limited images of the upper abdomen are unremarkable. IMPRESSION: Lung-RADS category 1. Recommend 12 month follow up low dose chest CT. Reviewed, Interpreted and Dictated by Chris Rivero III, MD Transcribed by Karine Taylor Authenticated and [facility]
[2024-02-03] MEDS: ALBUTEROL 0.083% 2.5 MG/3 ML NEB IH (15:12)
== END 2024-02-03 23:59 | disposition home or self-care (01) ==
LOC: RAD 14:04
PROVIDERS: PCP Family Medicine; Visit Provider Internal Medicine Pulmonary Disease
DX: J44.9 Chronic obstructive pulmonary disease, unspecified (principal); F17.210 Nicotine dependence, cigarettes, uncomplicated
CPT/HCPCS: 71271; 94060

== ENCOUNTER 2024-02-24 09:17 | Day surgery (SDC) | payer BC, SELFPAY ==
[2024-02-24] VITALS (13 sets, daily range): BP systolic 113–156; BP diastolic 41–94; PULSE 58–74; RESP 17–18; TEMP 36.6; O2SAT 95–99; BMI 28.6
--- NOTE | 2024-02-24 07:15 | IR_ITS ---
APPROVED REPORT Patient Location: Outpatient PROCEDURES Selective coronary angiogram Drug-eluting stent deployment to the mid LAD INDICATION Coronary artery disease, Abnormal Myoview, Angina pectoris Informed consent was obtained prior to the procedure. COMPLICATIONS None Estimated Blood Loss: Less than 10 mls TECHNIQUE One percent lidocaine used to anesthetize the right anterior aspect of the wrist. The right radial artery was accessed via the Seldinger technique. A 6 Tamazight sheath was placed in the right radial artery. 2.5 mg of Verapamil, 800 mcg of nitroglycerin, 1mg Lidocaine and 5000 U Heparin were given through the arterial sheath. The papa catheter was also used to perform selective coronary angiogram. At the end the diagnostic angiogram therapeutic heparin was administered and the guide catheter was placed in left main artery followed by Choice PT extra-support wire placed on the LAD. A 3.5 x 18 mm [place] frontier stent was deployed at 20 yash reducing the stenosis to 10%. A 3.5 x 8 mm noncompliant balloon was deployed at 24 yash in the proximal mid and distal portion of the stent to further post dilate. SHAHIDA-3 flow was present before and after the procedure. At the end of the procedure the apparatus was removed the sheath was removed and hemostasis was achieved using TR banding patient was transferred to the postop holding in stable condition ANGIOGRAPHIC RESULTS The left main artery Normal The left anterior descending artery Has proximal 30% stenosis with a mid vessel 70 and 50% stenosis The circumflex artery Is nondominant yet still large with a proximal 30% stenosis mid vessel 30% stenosis and a 30 to 40% stenosis in a large first obtuse marginal artery The right coronary artery Large and dominant with diffuse 10 and 20% stenoses The ALCANTARA ventriculogram reveals Not performed The left ventricular end-diastolic pressure Not measured IMPRESSION Severe mid LAD disease as described above Successful stenting of the mid LAD severe disease reduced to 0% with 1 drug-eluting stent Persistent moderate stenosis in a large first obtuse marginal artery and nondominant circumflex artery as described above PLAN 1. Effient 10 mg daily plus aspirin 81 mg daily 2. LDL less than 55 to be achieved with high intensity statin 3. Avoidance of tobacco products 4. Cardiac rehabilitation 5. Aggressive risk factor modification Electronically signed by : Blair Godinez MD 02/24/2024 10:34:29
[2024-02-24 09:55] LABS: Basophils # 0.1 K/mm3 (0-0.2); Basophils % 0.8 % (0.1-2.0); Eosinophils # 0.3 K/mm3 (0.0-0.4); Eosinophils % 2.7 % (0.1-12.0); Hematocrit 42.8 % (42.0-52.0); Hemoglobin 13.9 g/dL (14.1-18.0); Lymphocytes # 1.8 K/mm3 (0.7-4.5); Lymphocytes % 13.8 % (10-50); Mean Corpuscular HGB Conc 32.5 g/dL (31.8-35.4); Mean Corpuscular Hemoglobin 26.4 pg (27.0-31.2); Mean Corpuscular Volume 81.4 fl (80-94); Monocytes # 0.6 K/mm3 (0.1-1.0); Monocytes % 4.5 % (1.7-9.3); Neutrophils # 9.9 K/mm3 (1.8-7.8); Neutrophils % 78.3 % (37.0-80.0); Platelet Count 280 K/mm3 (142-424); Red Blood Count 5.25 M/mm3 (4.60-6.20); Red Cell Distribution Width 17.6 % (11.5-17.5); White Blood Count 12.7 K/mm3 (4.8-10.8)
[2024-02-24] MEDS: NITROGLYCERIN 800MCG/8ML SYR (CATH LAB) 800 MCG IA (10:00)
[2024-02-24] MEDS: HEPARIN 1,000 UNITS/500ML NS (CATH LAB) 3000 UNIT IV (10:00)
[2024-02-24] MEDS: diphenhydrAMINE 50MG/ML VIAL 50 MG IV (10:00)
[2024-02-24] MEDS: 0.9 % SODIUM CHLORIDE 500 ML 25 ML IV (10:00)
[2024-02-24] MEDS: VERAPAMIL 2.5MG/ML 2ML VIAL 2.5 MG IV (10:00)
[2024-02-24] MEDS: HEPARIN 1,000 UNITS/ML 10ML VIAL (CATH LAB) 10000 UNIT IV ×3 (10:00→10:32)
[2024-02-24] MEDS: LIDOCAINE 1% 10ML MDV 20 ML IJ (10:01)
[2024-02-24 10:04] LABS: Anion Gap 16.6 mEq/L (5-15); Blood Urea Nitrogen 17 mg/dl (9-20); Calcium 9.1 mg/dl (8.4-10.2); Carbon Dioxide 26 mmol/L (22.0-30.0); Chloride 102 mmol/L (98-107); Creatinine Clearance Estimated 88 mL/min (50-200); Estimated Glomerular Filt Rate 68 ml/min (>60); GFR (African American) 82 ML/MIN (>60); Glucose 99 mg/dl (74-100); Potassium 4.6 mmoL/L (3.5-5.1); Sodium 140 mmol/L (136-145)
[2024-02-24] MEDS: FENTANYL 100MCG/2ML VIAL 50 MCG IV (10:27)
[2024-02-24] MEDS: MIDAZOLAM HCL 1MG/1ML 5ML VIAL 1 MG IV (10:28)
[2024-02-24] MEDS: PRASUGREL 10MG TAB 60 MG PO (10:31)
[2024-02-24] MEDS: IOPAMIDOL-370 (76%);100ML BOTTLE 70 ML IV (14:35)
[2024-02-24 15:02] LABS: CATHL Activated Clotting Time 261 SEC (74-125)
== END 2024-02-24 14:34 | disposition home or self-care (01) ==
PROVIDERS: PCP Family Medicine; Visit Provider Internal Medicine
DX: I25.118 Atherosclerotic heart disease of native coronary artery with other forms of angina pectoris (principal); R94.39 Abnormal result of other cardiovascular function study; Z82.49 Family history of ischemic heart disease and other diseases of the circulatory system; Z87.891 Personal history of nicotine dependence; J44.9 Chronic obstructive pulmonary disease, unspecified; Z79.899 Other long term (current) drug therapy; I49.3 Ventricular premature depolarization
CPT/HCPCS: 80048; 85025; 85347; 92928; 93454; 99152; C1725; C1769; C1874; C9600; J1644; Q9967

== ENCOUNTER 2024-03-01 11:43 | Outpatient (CLI) | payer BC, SELFPAY ==
[2024-03-01 12:34] LABS: Basophils # 0.1 K/mm3 (0-0.2); Eosinophils # 0.2 K/mm3 (0.0-0.4); Eosinophils % 2.2 % (0.1-12.0); Hematocrit 40.6 % (42.0-52.0); Hemoglobin 12.9 g/dL (14.1-18.0); Lymphocytes # 1.9 K/mm3 (0.7-4.5); Lymphocytes % 22.6 % (10-50); Mean Corpuscular HGB Conc 31.9 g/dL (31.8-35.4); Mean Corpuscular Hemoglobin 26.1 pg (27.0-31.2); Mean Corpuscular Volume 81.8 fl (80-94); Monocytes # 0.7 K/mm3 (0.1-1.0); Monocytes % 8.7 % (1.7-9.3); Neutrophils # 5.5 K/mm3 (1.8-7.8); Neutrophils % 65.5 % (37.0-80.0); Platelet Count 262 K/mm3 (142-424); Red Blood Count 4.96 M/mm3 (4.60-6.20); Red Cell Distribution Width 17.7 % (11.5-17.5); White Blood Count 8.3 K/mm3 (4.8-10.8)
[2024-03-01 13:04] LABS: Alanine Aminotransferase 41 U/L (12-78); Albumin Level 4.2 g/dl (3.5-5.0); Alkaline Phosphatase 89 U/L (38-126); Anion Gap 14.5 mEq/L (5-15); Aspartate Amino Transferase 37 U/L (17-59); Bilirubin,Direct 0.1 mg/dl (0.0-0.4); Bilirubin,Indirect 0.5 mg/dL (0.0-0.9); Bilirubin,Total 0.6 mg/dl (0.2-1.3); Bilirubin,Unconjugated 0.5 mg/dL (0.0-1.1); Blood Urea Nitrogen 16 mg/dl (9-20); Calcium 8.9 mg/dl (8.4-10.2); Carbon Dioxide 26 mmol/L (22.0-30.0); Chloride 104 mmol/L (98-107); Chol/HDL Ratio 4.3 (1-3.5); Cholesterol 117 mg/dl (140-200); Estimated Glomerular Filt Rate 56 ml/min (>60); GFR (African American) 67 ML/MIN (>60); Glucose 81 mg/dl (74-100); HDL Cholesterol 27 mg/dl (40-60); Potassium 4.5 mmoL/L (3.5-5.1); Sodium 140 mmol/L (136-145); Total Protein,Serum 6.9 g/dl (6.3-8.2); Triglycerides 157 mg/dl (30-150); VLDL Cholesterol 31 mg/dL (0-40)
[2024-03-01 13:14] LABS: Direct LDL Cholesterol 72.68 mg/dL (100-129)
== END 2024-03-01 23:59 | disposition home or self-care (01) ==
LOC: LAB 11:44
PROVIDERS: Physician Assistant; PCP Family Medicine; Visit Provider Internal Medicine
DX: I11.9 Hypertensive heart disease without heart failure (principal); Z87.891 Personal history of nicotine dependence
CPT/HCPCS: 80048; 80061; 80076; 85025

== ENCOUNTER 2024-05-26 07:48 | Day surgery (SDC) | payer BC, SELFPAY ==
[2024-05-23 16:23] VITALS: BMI 27.2
[2024-05-26] VITALS (7 sets, daily range): BP systolic 118–137; BP diastolic 78–92; PULSE 57–63; RESP 14–18; TEMP 36.2–36.5; O2SAT 93–100
--- NOTE | 2024-05-26 08:22 | P.PNANES_ITS ---
[facility] Disclaimer: The information contained in this section may have been updated after the patient was seen, as this information can be updated by other users. Medical History Hyperlipidemia Hypertension CAD in [place] artery Dyspnea on exertion Encounter for screening for malignant neoplasm of lung History of smoking 30 or more pack years Surgical History H/O heart artery stent Stented coronary artery Hx of cardiac cath History of sinus surgery History of toe surgery Family History Other Asthma Cancer Diabetes Heart attack Hypertension Social History (Updated 05/26/24 @ 08:09 by Chastity Barakat RN) Smoking Status: Former smoker tobacco type: cigarettes alcohol intake: never substance use type: denies use current occupational status: employed Travel in the last 8 weeks: None household members: spouse housing: house current occupation: [employer] current occupational exposures/hazards: No caffeine: Yes [facility] Anesthesia Checklist Patient Identification Patient Identification: Arm Band and Verbal (Name & ) Structural Data Admitted From: Home Planned Operative Procedure/s: EGD Consent for Planned Operative Procedure(s) Verified: Yes Verified Documents: Surgical Consent and History and Physical NPO Status Verified Time NPO: 21:00 Chart Verification Results Verified: CBC, BMP, ECG and Chest Xray Additional verifications Patient : No Anesthesia Reactions: No Cardiovascular Assessment Heart Sounds: S1 & S2 Pulse Rhythm: Irregular Peripheral Edema: No Airway Assessment Mallampati Score:: Class II C-Spine Mobility Assessed: Yes (FROM) TMJ Mobility Assessed: Yes Dentition: Poor Dentition (Carried. Nothing loose per pt.) Neurological Assessment Level of Consciousness: Awake, Alert, Appropriate and Follows Commands Hx Seizures: No Numbness or tingling in extremities: No Anesthesia Plan Anesthesia Risk discussed: Yes Anesthesia Plan: Verified ASA Class: III Anesthesia Type: MAC
--- NOTE | 2024-05-26 09:11 | HMH.SCOPE ---
Procedure: Date: 05/26/24 Patient Date of :: 1960 Procedure Performed:: Diagnostic EGD Indications:: Chronic GERD Performing Provider:: Jeanna Ramesh MD Referring Provider:: Larry Jain MD Sedation:: Propofol Procedure:: The gastroscope was gently passed through the incisoral orifice into the oral cavity and under direct visualization the esophagus was intubated. The endoscope was passed down the esophagus, through the stomach, and into the duodenum. Color, texture, mucosa, and anatomy of the esophagus, stomach, and duodenum were carefully examined with the scope. Findings:: Oropharynx: normal Esophagus: normal, no evidence of barretts EG Junction: intact at 40 cm Cardia: normal Fundus: normal Body: normal Antrum: normal Duodenal bulb: normal Duodenum (second and third portion): normal Impression: Overall normal EGD w/o evidence of barretts Recommendations:: Continue symptom control as clinically indicated Complications:: None Estimated blood obtained (mL): 0 Colonoscopy Component Colonoscopy Component Was a colonoscopy performed during today's procedure?: No
--- NOTE | 2024-05-26 09:16 | EXP.ANES.I ---
[facility] Anesthesia Record Part I Anesthesia Record I Intake, IV Amount: 200 Hydration: Adequate Estimated blood loss (mL): 0 Urine output (mL): 0 Blood Products used (#): none Blood Pressure: 118/80 SaO2: 95 Pulse Rate: 59 Airway Patency: Patent Respiratory Rate: 16 Temperature: 97.7 F Patient is:: Drowsy and Stable Stable to PACU at:: 09:20
== END 2024-05-26 09:48 | disposition home or self-care (01) ==
PROVIDERS: PCP Family Medicine; Visit Provider Internal Medicine Gastroenterology
PROC: 0DJ08ZZ Inspection of Upper Intestinal Tract, Via Natural or Artificial Opening Endoscopic (ICD-10-PCS; CPT 43235; principal; 2024-05-26 09:00)
DX: K21.9 Gastro-esophageal reflux disease without esophagitis (principal)
CPT/HCPCS: 43235; J7120

== ENCOUNTER 2024-06-09 15:36 | Outpatient (CLI) | payer BC, SELFPAY ==
[2024-06-09 16:14] LABS: Basophils # 0.1 K/mm3 (0-0.2); Basophils % 1.1 % (0.1-2.0); Eosinophils # 0.2 K/mm3 (0.0-0.4); Eosinophils % 3.2 % (0.1-12.0); Hematocrit 40.6 % (42.0-52.0); Hemoglobin 12.6 g/dL (14.1-18.0); Lymphocytes # 1.7 K/mm3 (0.7-4.5); Lymphocytes % 24.2 % (10-50); Mean Corpuscular HGB Conc 31.1 g/dL (31.8-35.4); Mean Corpuscular Hemoglobin 27.9 pg (27.0-31.2); Mean Corpuscular Volume 89.7 fl (80-94); Mean Platelet Volume 9.3 fl (7.4-10.4); Monocytes # 0.5 K/mm3 (0.1-1.0); Neutrophils # 4.5 K/mm3 (1.8-7.8); Neutrophils % 64.5 % (37.0-80.0); Platelet Count 288 K/mm3 (142-424); Red Blood Count 4.53 M/mm3 (4.60-6.20); Red Cell Distribution Width 19.3 % (11.5-17.5)
[2024-06-09 16:41] LABS: Alanine Aminotransferase 43 U/L (12-78); Alkaline Phosphatase 65 U/L (38-126); Anion Gap 11.1 mEq/L (5-15); Aspartate Amino Transferase 36 U/L (17-59); Bilirubin,Direct 0.2 mg/dl (0.0-0.4); Bilirubin,Indirect 0.3 mg/dL (0.0-0.9); Bilirubin,Total 0.5 mg/dl (0.2-1.3); Bilirubin,Unconjugated 0.3 mg/dL (0.0-1.1); Blood Urea Nitrogen 15 mg/dl (9-20); Calcium 8.4 mg/dl (8.4-10.2); Carbon Dioxide 25 mmol/L (22.0-30.0); Chloride 107 mmol/L (98-107); Chol/HDL Ratio 3.4 (1-3.5); Cholesterol 94 mg/dl (140-200); Estimated Glomerular Filt Rate 67 ml/min (>60); GFR (African American) 82 ML/MIN (>60); Glucose 114 mg/dl (74-100); HDL Cholesterol 28 mg/dl (40-60); Potassium 4.1 mmoL/L (3.5-5.1); Sodium 139 mmol/L (136-145); Total Protein,Serum 6.9 g/dl (6.3-8.2); Triglycerides 137 mg/dl (30-150); VLDL Cholesterol 27 mg/dL (0-40)
[2024-06-09 16:47] LABS: Hemoglobin A1C 5.8 % (4.0-6.0)
[2024-06-09 17:12] LABS: Thyroid Stimulating Hormone 0.88 uIU/mL (0.465-4.68)
== END 2024-06-09 23:59 | disposition home or self-care (01) ==
LOC: LAB 15:37
PROVIDERS: PCP Family Medicine; Visit Provider Nurse Practitioner Family
DX: E78.2 Mixed hyperlipidemia (principal); I10 Essential (primary) hypertension; I25.10 Atherosclerotic heart disease of native coronary artery without angina pectoris; R06.09 Other forms of dyspnea; Z12.2 Encounter for screening for malignant neoplasm of respiratory organs
CPT/HCPCS: 36415; 80048; 80061; 80076; 83036; 84439; 84443; 85025

== ENCOUNTER 2024-06-22 15:38 | Outpatient (CLI) | payer BC, SELFPAY ==
[2024-06-22 16:29] LABS: Reticulocyte % (Auto) 2.1 % (0.9-3.2)
[2024-06-22 16:42] LABS: Iron 85 ug/dL (49-181)
[2024-06-22 16:52] LABS: Total Iron Binding Capacity 424 ug/dL (261-462)
[2024-06-22 17:18] LABS: Ferritin 8.12 ng/ml (17.9-464)
[2024-06-22 19:19] LABS: Folate 5.02 ng/mL; Lactate Dehydrogenase 183 U/L (313-618); Vitamin B12 > 1000 pg/mL (239-931)
[2024-06-24 13:39] LABS: Haptoglobin 202 mg/dL (32-363)
== END 2024-06-22 23:59 | disposition home or self-care (01) ==
LOC: LAB 15:39
PROVIDERS: PCP Family Medicine; Visit Provider Internal Medicine Medical Oncology
DX: D64.9 Anemia, unspecified (principal); M10.079 Idiopathic gout, unspecified ankle and foot; M79.673 Pain in unspecified foot
CPT/HCPCS: 36415; 82607; 82728; 82746; 83010; 83540; 83550; 83615; 85044; 86880

== ENCOUNTER 2024-10-05 15:44 | Outpatient (CLI) | payer BC, SELFPAY ==
[2024-10-05 16:12] LABS: Basophils # 0.1 K/mm3 (0-0.2); Basophils % 0.9 % (0.1-2.0); Eosinophils # 0.3 K/mm3 (0.0-0.4); Eosinophils % 4.3 % (0.1-12.0); Hematocrit 45.6 % (42.0-52.0); Hemoglobin 15.2 g/dL (14.1-18.0); Lymphocytes # 1.8 K/mm3 (0.7-4.5); Lymphocytes % 23.8 % (10-50); Mean Corpuscular HGB Conc 33.3 g/dL (31.8-35.4); Mean Corpuscular Hemoglobin 30.1 pg (27.0-31.2); Mean Corpuscular Volume 90.3 fl (80-94); Mean Platelet Volume 10.4 fl (7.4-10.4); Monocytes # 0.8 K/mm3 (0.1-1.0); Monocytes % 9.9 % (1.7-9.3); Neutrophils # 4.7 K/mm3 (1.8-7.8); Neutrophils % 60.8 % (37.0-80.0); Platelet Count 227 K/mm3 (142-424); Red Blood Count 5.05 M/mm3 (4.60-6.20); Red Cell Distribution Width 16.2 % (11.5-17.5); White Blood Count 7.7 K/mm3 (4.8-10.8)
[2024-10-05 16:38] LABS: Anion Gap 13.9 mEq/L (5-15); Blood Urea Nitrogen 17 mg/dl (9-20); Calcium 8.8 mg/dl (8.4-10.2); Carbon Dioxide 27 mmol/L (22.0-30.0); Chloride 99 mmol/L (98-107); Estimated Glomerular Filt Rate 61 ml/min (>60); GFR (African American) 74 ML/MIN (>60); Glucose 86 mg/dl (74-100); Potassium 4.9 mmoL/L (3.5-5.1); Sodium 135 mmol/L (136-145)
[2024-10-05 17:29] LABS: Iron 127 ug/dL (49-181)
[2024-10-05 17:43] LABS: Total Iron Binding Capacity 434 ug/dL (261-462)
[2024-10-05 18:13] LABS: Ferritin 16.5 ng/ml (17.9-464)
== END 2024-10-05 23:59 | disposition home or self-care (01) ==
LOC: LAB 15:45
PROVIDERS: Physician Assistant; PCP Family Medicine; Visit Provider Internal Medicine Medical Oncology
DX: E78.2 Mixed hyperlipidemia (principal); I10 Essential (primary) hypertension; I25.10 Atherosclerotic heart disease of native coronary artery without angina pectoris; D64.9 Anemia, unspecified
CPT/HCPCS: 80048; 82728; 83540; 83550; 85025

== ENCOUNTER 2024-10-06 14:07 | Outpatient (CLI) | payer BC, SELFPAY ==
--- NOTE | 2024-10-06 14:08 | CT_ITS ---
FINAL REPORT TECHNIQUE: The patient was injected with IV contrast. Axial images were obtained through the chest in a PE protocol. 3-D reconstruction images were also performed. Individualized dose reduction techniques using automated exposure control or adjustment of the MA and/or KV according to patient's size were employed. CLINICAL HISTORY: ascending aorta dilation COMPARISON: Prior JENNA of the chest 02/03/2024 FINDINGS: Mediastinal vasculature is adequately opacified. No pulmonary artery filling defects are identified to suggest PE. There is no aortic dissection. There is ectasia of the ascending aorta measuring up to 4 cm in size. This was also noted on the prior LDCT of 02/03/2024. Dense LAD arterial calcifications are noted. There is no axillary adenopathy. There is no hilar or mediastinal adenopathy. The heart size is normal. There is no pericardial or pleural effusion. Limited images of the upper abdomen are unremarkable. No suspicious infiltrate or nodule is identified. Moderate changes of centrilobular emphysema are present. IMPRESSION: Ascending aortic aneurysm measuring up to 4 cm in size, essentially stable when compared to the prior exam. Moderate changes of centrilobular emphysema. Dense LAD coronary artery calcifications are present. Reviewed, Interpreted and Dictated by Bright Parisi MD Transcribed by Karine Taylor Authenticated and [facility]
[2024-10-06] MEDS: 0.9 % SODIUM CHLORIDE 50 ML VIAL IV (14:28)
[2024-10-06] MEDS: SODIUM CHLORIDE 0.9% 10ML SYR (RAD ONLY) 10 ML IV (14:28)
[2024-10-06] MEDS: IOPAMIDOL-370 (76%);100ML BOTTLE 80 ML IV (14:28)
== END 2024-10-06 23:59 | disposition home or self-care (01) ==
PROVIDERS: PCP Family Medicine; Visit Provider Physician Assistant
DX: I25.10 Atherosclerotic heart disease of native coronary artery without angina pectoris (principal); I77.810 Thoracic aortic ectasia
CPT/HCPCS: 71275; Q9967

== ENCOUNTER 2025-01-03 15:18 | Outpatient (CLI) | payer BC, SELFPAY ==
--- OUTSIDE RECORDS SUMMARY | 2025-01-05 21:37 | XMS_ITS | Data Portability ---
Author Organization [facility] - Gold rapp MD, Main Office Address [address] [place] [address], [facility] [address] [place] [address] Care Team Providers Care Parks And Recreation Worker Name Role Phone CARLOZ ARNOLD Prism Inspector Assessment No assessment recorded. Plan of Treatment Reminders Order Date Submit Date Provider Last Modified By Organization Details Last Modified Time Details Appointments None record ed. Lab None record ed. Referral None record ed. Procedures None record ed. Surgeries None record ed. Imaging None record ed. Medication Orders None record ed. Patient TargetsNo targets recorded. Patient InstructionsNo instructions recorded. Reason for Referral None Reported. Results Created Date Observation Date Name Description Value Unit Range Abnormal Flag Note LastModifiedBy Organization Detail LastModifiedTime 10/14/19 18 10/14/2017 elect romyo gram + nerve condu ction study No observ ation record ed. [facility] Not Available 2017 15:13:28 Result Notes None recorded. Procedures Surgical History Date Name Laterality Status Provider Name and Address Organization Details Recorded Time 10/14/2017 NCV/EMG completed Aung Wick MD 10/14/2017 15:00:38 Imaging Results Imaging Date Name Status LastModified by Organization Details LastModified Time 10/14/2017 electromyogram + nerve conduction study completed [facility] Information not available 10/14/2017 15:13:28 Procedure Notes None recorded. Medical Equipment None Reported. Medications Name Sig Start Date Stop Date Status Note LastModified by Organization Details LastModified Time promethazine-DM 6.25 mg-15 mg/5 mL oral syrup active Not Available Not Availabl e Not Available clarithromycin 500 mg tablet active Not Available Not Availabl e Not Available oseltamivir 75 mg capsule active Not Available Not Available N ot Available esomeprazole magnesium 40 mg capsule,delayed release active Not Available Not Available Not Available prednisone 5 mg tablets in a dose pack active Not Available Not Available No t Available zolpidem 10 mg tablet active Not Available Not Available Not Available naproxen 500 mg tablet active Not Available Not Available Not Available Stiolto Respimat 2.5 mcg-2.5 mcg/actuation solution for inhalation active Not Available Not Available N ot Available Vitals None Recorded Social History None recorded. Functional Status None recorded. Mental Status None recorded. Family History Nothing Reported. Medical History No medical history recorded. Past Encounters Encounter ID Performer Location Encounter Start Date Encounter Closed Date Diagnosis/Indication Diagnosis SNOMED-CT Code Diagnosis ICD10 Code Diagnosis Note 359 Aung Duran Main [address] [facility] [address] [facility] [address], [facility] [address] [place] [address] 10/14/2017 13:40:47 10/14/2017 14:28:48 Bilateral carpal tunnel syndrome [id number] G56.03 Mild bilateral CTS. 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 Health Concerns Section Related Observation LastModified by Organization Deanna khoury LastModified Time None Recorded Concern Status LastModified by Organization Details LastModified Time None Recorded Advance Directives Directive None Recorded Payers Encounter Date Sequence Insurance Name Policy Number Policy Saeed Covered Member ID Saeed Member ID Guarantor Name 10/14/2017 PETER Mascorro
== END 2025-01-03 23:59 | disposition home or self-care (01) ==
LOC: LAB 15:19
PROVIDERS: PCP Family Medicine; Visit Provider Nurse Practitioner
DX: M10.071 Idiopathic gout, right ankle and foot (principal); M79.671 Pain in right foot
CPT/HCPCS: 36415; 84550

== ENCOUNTER 2025-02-02 15:10 | Outpatient (CLI) | payer BC, SELFPAY ==
--- OUTSIDE RECORDS SUMMARY | 2025-02-02 15:12 | XMS_ITS | Data Portability ---
Author Organization [facility] - Gold rapp MD, Main Office Address [address] [place] [address], [facility] [address] [place] [address] Care Team Providers Care Alternative Financing Specialist Name Role Phone CARLOZ ARNOLD Wall Cleaner Assessment No assessment recorded. Plan of Treatment [...] Code Diagnosis ICD10 Code Diagnosis Note 359 Gold Wick MD Main Office [address] [facility], [facility] [address] [place] [address] 10/14/2017 13:40:47 10/14/2017 14:28:48 Bilateral carpal tunnel syndrome [id number] G56.03 Mild bilateral CTS. 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 Health Concerns Section Related Observation LastModified by Organization Detai ls LastModified Time None Recorded Concern Status LastModified by Organization Details LastModified Time None Recorded Advance Directives Directive None Recorded Payers Encounter Date Sequence Insurance Name Policy Number Policy Saeed Covered Member ID Saeed Member ID Guarantor Name 10/14/2017 PETER Mascorro
--- NOTE | 2025-02-02 15:13 | CT_ITS ---
FINAL REPORT TECHNIQUE: Thin section axial images were obtained through the lungs using a low-dose technique per lung cancer screening protocol. Reconstruction images were obtained using the axial data. Exam was performed using dose reduction technique. CLINICAL HISTORY: lung cancer screening former smoker, unsure cessation date, 2 ppd x 40 yr FINDINGS: CTDLvol: 2.9 DLP: 97.95 Former smoker 80 pack year history Lungs: A 4 mm left lower lobe pulmonary nodule seen on image 67 of series 3 is stable since the prior low-dose scan from 02/03/2024. The lungs are otherwise clear. Lymph nodes: No thoracic lymphadenopathy. Mediastinum: Heart size is normal. There are prominent coronary artery calcifications. A 4 cm ascending aortic aneurysm is stable. Pleura/pericardium: No pleural or pericardial effusion. Other: No acute abnormality in the upper abdomen. IMPRESSION: Stable 4 mm left lower lobe pulmonary nodule. Lung RADS: 2S: S qualifier is for prominent coronary artery calcifications. Recommendation: Continue low-dose chest CT surveillance recommended in 1 year. Reviewed, Interpreted and Dictated by Paz Strong MD Transcribed by TAZ Love Authenticated and . [facility]
[2025-02-02 16:06] LABS: Basophils # 0.1 K/mm3 (0-0.2); Basophils % 0.9 % (0.1-2.0); Eosinophils # 0.4 Kmm3 (0.0-0.4); Eosinophils % 6.3 % (0.1-12.0); Hematocrit 42.5 % (42.0-52.0); Hemoglobin 14.6 g/dL (14.1-18.0); Immature Granulocytes # 0.02 10^3uL; Immature Granulocytes % 0.3 %; Lymphocytes # 1.4 K/mm3 (0.7-4.5); Lymphocytes % 20.9 % (10-50); Mean Corpuscular HGB Conc 34.4 g/dL (31.8-35.4); Mean Corpuscular Hemoglobin 32.2 pg (27.0-31.2); Mean Corpuscular Volume 93.6 fl (80-94); Mean Platelet Volume 10.5 fl (7.4-10.4); Monocytes # 0.6 K/mm3 (0.1-1.0); Monocytes % 9.3 % (1.7-9.3); Neutrophils # 4.1 K/mm3 (1.8-7.8); Neutrophils % 62.3 % (37.0-80.0); Nucleated Red Blood Cells # 0 10^3/uL; Nucleated Red Blood Cells % 0 %; Platelet Count 193 K/mm3 (142-424); Red Blood Count 4.54 M/mm3 (4.60-6.20); Red Cell Distribution Width 14.6 % (11.5-17.5); Red Cell Distribution Width-SD 50.3 fL; White Blood Count 6.5 K/mm3 (4.8-10.8)
[2025-02-02 19:09] LABS: Iron 91 ug/dL (49-181)
[2025-02-02 19:27] LABS: Total Iron Binding Capacity 344 ug/dL (261-462)
== END 2025-02-02 23:59 | disposition home or self-care (01) ==
LOC: RAD 15:11
PROVIDERS: Internal Medicine Medical Oncology; PCP Family Medicine; Visit Provider Internal Medicine Pulmonary Disease
DX: D64.9 Anemia, unspecified (principal); Z12.2 Encounter for screening for malignant neoplasm of respiratory organs; F17.210 Nicotine dependence, cigarettes, uncomplicated; R91.1 Solitary pulmonary nodule
CPT/HCPCS: 36415; 71271; 82728; 83540; 83550; 85025

== ENCOUNTER 2025-02-24 15:09 | Outpatient (CLI) | payer BC, SELFPAY ==
--- NOTE | 2025-02-24 15:12 | CT_ITS ---
FINAL REPORT TECHNIQUE: multiple axial CT images were performed from the foramen magnum to the vertex without enhancement. CLINICAL HISTORY: HEADACHE MEMORY LOSS HTN COMPARISON: None FINDINGS: Mild global atrophy is identified. There is periventricular white matter change likely related to small vessel disease. There is no evidence of hemorrhage. No masses are identified. No extra-axial fluid is seen. The sinuses are normal. IMPRESSION: Mild atrophy and chronic white matter changes, without acute intracranial abnormality. Reviewed, Interpreted and Dictated by Bright Parisi MD Transcribed by Karine Taylor Authenticated and [facility]
--- OUTSIDE RECORDS SUMMARY | 2025-02-24 15:12 | XMS_ITS | Data Portability ---
Author Organization [facility] - Gold rapp MD, Main Office Address [address] [place] [address], [facility] [address] [place] [address] Care Team Providers Care Chiseler Head Name Role Phone CARLOZ ARNOLD Forest Biometrics Professor [phone] Assessment No assessment recorded. Plan of Treatment [...] Aung Wick MD 10/14/2017 15:00:38 Imaging Results None recorded. Procedure Notes None recorded. Medical Equipment None [...] 359 Gold Wick MD Main Office [address] [facility] [address] [place] [address] 10/14/2017 13:40:47 10/14/2017 14:28:48 Bilateral carpal tunnel syndrome [id number] G56.03 Mild bilateral CTS. Cervical radiculopathy [id number] M54.12 Mild chronic right C6/7 radiculopa thy. [...]
== END 2025-02-24 23:59 | disposition home or self-care (01) ==
PROVIDERS: PCP Family Medicine; Visit Provider Nurse Practitioner
DX: R90.82 White matter disease, unspecified (principal); I10 Essential (primary) hypertension; R51.9 Headache, unspecified; R41.3 Other amnesia
CPT/HCPCS: 70450